=== PATIENT | female | born 1990 | race Caucasian/White ===

== ENCOUNTER 2020-04-12 19:57 | Emergency (ER) | payer SELFPAY ==
[~2020-04-12] VITALS: Ht 160 cm; Wt 81.6 kg
[2020-04-12 20:02] VITALS: Ht 160 cm; Wt 81.6 kg
[2020-04-12 20:56] VITALS: BP 132/72
== END 2020-04-12 20:56 | disposition home or self-care (01) ==
LOC: ED 19:57
DX: M79.10 Myalgia, unspecified site (principal); R25.1 Tremor, unspecified